=== PATIENT | female | born 1945 | race Hispanic/Latino ===

== ENCOUNTER 2017-10-06 08:36 | Emergency (ER) | payer MEDICARE ==
[2017-10-06 10:29] VITALS: BP 180/99
== END 2017-10-06 11:11 | disposition left against medical advice (07) ==
LOC: ED 08:36 → VAS 08:36 → ED 11:11
DX: Z53.21 Procedure and treatment not carried out due to patient leaving prior to being seen by health care provider (principal)
CPT/HCPCS: 93922